=== PATIENT | female | born 1960 | race Caucasian/White ===

== ENCOUNTER 2018-09-08 13:28 | Inpatient (IN) | payer BC, OTHER ==
[2018-09-08] MEDS ORDERED: LIDOCAINE 1% 2 ML INJ ID PRN (13:44)
[2018-09-08] MEDS ORDERED: LR 1,000 ML IV ONE (13:44)
[2018-09-08] MEDS ORDERED: ACETAMINOPHEN 500 MG TAB PO ONE (13:48)
[2018-09-08] MEDS ORDERED: ceFAZolin 2 GM/DEXTROSE 100 ML IV ONE (13:48)
[2018-09-08] MEDS ORDERED: GABAPENTIN 300 MG CAP PO ONE (13:48)
[2018-09-08] MEDS ORDERED: BACITRACIN ZINC 0.5 OZ OINTTUBE TP ONE (13:53)
[2018-09-08] MEDS ORDERED: CHLORHEXIDINE GLUC HIBICLENS 118 ML BTL TP ONE (13:53)
[2018-09-08] MEDS ORDERED: THROMBIN (BOVINE) 20,000 UNIT VIAL TP ONE (13:53)
[2018-09-08] MEDS ORDERED: BACITRACIN 50,000 UNITS/10 ML SYR IRR ONE (13:54)
[2018-09-08] MEDS ORDERED: EPINEPHrine 1 MG/ML INJ ONE (13:54)
[2018-09-08] MEDS ORDERED: BUPIVACAINE 0.25% 30 ML SDV ONE (13:54)
--- NOTE | 2018-09-08 14:03 | PDHPUP ---
History & Physical Update H&P update statement: This history and physical update is based on an assessment of the patient which was completed after admission or registration (within 24 hours), but prior to the surgery/procedure. H&P update: H&P reviewed & patient examined, no change in patient's condition since H&P completed
[2018-09-08] MEDS ORDERED: MIDAZOLAM 2 MG/2 ML VIAL IVP ONE (14:54)
--- NOTE | 2018-09-08 14:54 | PDANEPAE ---
ANE History of Present Illness Neck pain, limited ROM, peripheral neuropathy in UE ANE Past Medical History - Cardiovascular History Hx Hypertension: No Hx Arrhythmias: No Hx Chest Pain: No Hx Coronary Artery / Peripheral Vascular Disease: No Hx CHF / Valvular Disease: No Hx Palpitations: No - Pulmonary History Hx COPD: No Hx Asthma/Reactive Airway Disease: Yes Hx Recent Upper Respiratory Infection: No Hx Oxygen in Use at Home: No Hx Sleep Apnea: No - Neurologic History Hx Cerebrovascular Accident: No Hx Seizures: No Hx Dementia: No Neurologic History Comment: MENINGIOMA, CRAINIOTOMY - Endocrine History Hx Diabetes: No - Renal History Hx Renal Disorders: No - Liver History Hx Hepatic Disorders: No - Neurological & Psychiatric Hx Neurological / Psychiatric History Comment: BIPOLAR - Cancer History Hx Cancer: Yes Cancer History Comment: MENINGIOMA - Congenital Disorder History Hx Congenital Disorders: No - GI History Hx Gastrointestinal Disorders: Yes Gastrointestinal History Comment: gerd - Chronic Pain History Chronic Pain: Yes (ON LOTS OF OPIODS) - Surgical History Prior Surgeries: CRAINIOTOMY 2006. MULTIPLE SPINE SURGERIES ANE Review of Systems Review of Systems: - Exercise capacity METS (RN): 4 METS ANE Patient History - Allergies Allergies/Adverse Reactions: No Known Allergies Allergy (Verified 09/07/18 14:38) - Home Medications Home medications: home medication list seen and reviewed Home Medications: Albuterol [Proventil Inhaler HFA (*)] 1 - 2 puffs IH Q4H PRN 09/07/18 [Last Taken 08/09/18] Ascorbic Acid [Vitamin C 500 mg (*)] 500 mg PO DAILY 09/07/18 [Last Taken ] Cyanocobalamin [Vitamin B12 1000MCG/ML (*)] 1,000 mcg IM Q30D 09/07/18 [Last Taken 09/04/18] Diazepam [Valium 5 MG (*)] 10 mg PO HS 09/07/18 [Last Taken 09/07/18] Ergocalciferol [Vitamin D2 (*)] 50,000 unit PO SA 09/07/18 [Last Taken 09/04/18] Estradiol [Estrace Vaginal (*)] 1 alma rosa VG Q3D 09/07/18 [Last Taken Unknown] Gabapentin [Neurontin 300 MG (*)] 900 mg PO BID 09/07/18 [Last Taken 09/08/18 10 :00] Herbals/Supplements -Info Only 1 ea PO DAILY 09/07/18 [Last Taken 09/04/18] Levothyroxine [Synthroid 50 mcg (*)] 50 mcg PO DAILY06 09/07/18 [Last Taken 10:00] Multivitamins [Multivitamin (*)] 1 each PO DAILY 09/07/18 [Last Taken 09/04/18] [place]-3 Fatty Acids [Fish Oil 1000 mg (*)] 1,000 mg PO DAILY 09/07/18 [Last Taken 09/04/18] Polyethylene Glycol 3350 [Miralax 17 gm (*)] 34 gm PO HS 09/07/18 [Last Taken Unknown] QUEtiapine FUMARATE [Seroquel 100 mg (*)] 100 mg PO HS 09/07/18 [Last Taken ] Vortioxetine Hydrobromide [Brintellix] 20 mg PO DAILY 09/07/18 [Last Taken 09/08 10:00] fentaNYL [Duragesic 75 MCG Patch (*)] 75 mcg TD Q48H 09/07/18 [Last Taken 16:00] lamoTRIgine [LamICTAL 100 MG (*)] 200 mg PO DAILY 09/07/18 [Last Taken 09/08/18 10:00] oxyCODONE IR [Oxycodone Ir (*)] 30 mg PO Q4HRS PRN 09/07/18 [Last Taken 10:00] oxyCODONE ORAL SOLUTION [Roxicodone Intensol] 20 mg PO Q4HRS PRN 09/07/18 [Last Taken 09/06/18] risperiDONE [Risperdal 1mg (*)] 1 mg PO BID 09/07/18 [Last Taken 09/08/18 10:00] traZODone [traZODONE 50MG (*)] 100 - 150 mg PO HS 09/07/18 [Last Taken 09/07/18] - NPO status NPO Status: no food or drink >8 hours NPO Since - Liquids (Date): 09/08/18 NPO Since - Liquids (Time): 10:00 NPO Since - Solids (Date): 09/07/18 NPO Since - Solids (Time): 22:00 - Anes Hx Anes Hx: no prior problems - Smoking Hx Smoking Status: Current some day smoker - Family Anes Hx Family Anes Hx: none ANE Labs/Vital Signs - Vital Signs Blood Pressure: 110/64 Heart Rate: 77 Respiratory Rate: 19 O2 Sat (%): 92 ANE Physical Exam - Airway Neck exam: decreased ROM Mallampati Score: Class 1 Mouth exam: normal dental/mouth exam - Pulmonary Pulmonary: no respiratory distress, no rales or rhonchi - Cardiovascular Cardiovascular: regular rate and rhythym, no murmur, rub, or gallop - ASA Status ASA Status: II ANE Anesthesia Plan Anesthesia Plan: general endotracheal anesthesia
[2018-09-08] MEDS ORDERED: HYDROmorphONE/DILAUDID 2 MG/ML INJ ONE ×2 (15:01→19:24)
[2018-09-08] MEDS ORDERED: KETAMINE 200 MG/20 ML VIAL ONE (15:02)
[2018-09-08] MEDS ORDERED: fentaNYL 100 MCG/2 ML INJ ONE ×4 (15:02→19:47)
[2018-09-08] MEDS ORDERED: PROPOFOL/EMULSION 500 MG/50 ML BOTTLE IV ONE (15:02)
[2018-09-08] MEDS ORDERED: REMIFENTANIL HCL 1 MG VIAL ONE (15:02)
[2018-09-08] MEDS ORDERED: PROPOFOL 200 MG/20 ML VIAL ONE (15:02)
--- NOTE | 2018-09-08 15:29 | POSTOPPROG ---
Post Op Note Date of Operation: 09/08/18 Surgeon: Max Abel Electroless Plater: Max Abel PAC Anesthesiologist: Pamela Anesthesia: GET(General Endotracheal) Pre-op Diagnosis: C6/7 HNP, spinal stenosis Post-op Diagnosis: Same Indication: Neck pain, leg discoordination Procedure: C6/7 ACDF, Posterior C6/7 Decompression/fusion Findings: Stenoisis Inf/Abcess present in the surg proc area at time of surgery?: No EBL: 100-500 Complications: None Drains: Yosvany Oneal (To bulb suction x 2) Specimen(s): none
[2018-09-08] MEDS ORDERED: SUGAMMADEX SODIUM 200 MG/2 ML VIAL IVP ONE (15:32)
[2018-09-08] MEDS ORDERED: DEXAMETHASONE 4 MG/ML VIAL ONE ×2 (15:53)
[2018-09-08] MEDS ORDERED: ONDANSETRON 4 MG/2 ML VIAL IVP PRN ×2 (17:33→18:36)
[2018-09-08] MEDS ORDERED: NALOXONE HCL 0.4 MG/ML INJ IVP PRN ×2 (17:33→18:36)
[2018-09-08] MEDS ORDERED: PROMETHAZINE HCL 25 MG/ML INJ IVP PRN ×2 (17:33→18:36)
[2018-09-08] MEDS ORDERED: ONDANSETRON 4 MG/2 ML VIAL ONE (18:07)
[2018-09-08] MEDS ORDERED: diphenhydrAMINE 25 MG CAP PO PRN (18:36)
[2018-09-08] MEDS ORDERED: LACTULOSE 20 GM/30 ML UDCUP PO PRN (18:36)
[2018-09-08] MEDS ORDERED: ONDANSETRON DISINTEGRATING 4 MG TAB PO PRN (18:36)
[2018-09-08] MEDS ORDERED: oxyCODONE IR 5 MG TAB PO PRN (18:36)
[2018-09-08] MEDS ORDERED: BISACODYL 10 MG SUPP PR PRN (18:36)
[2018-09-08] MEDS ORDERED: morphINE PCA 30 MG/30 ML PCA IV PRN (18:36)
[2018-09-08] MEDS ORDERED: HYDROmorphONE/DILAUDID 1 MG/ML INJ IVP PRN (18:36)
[2018-09-08] MEDS ORDERED: MAGNESIUM HYDROXIDE 30 ML UDCUP PO PRN (18:36)
--- NOTE | 2018-09-08 18:36 | SOAPPROG ---
SOAP Progress Note Assessment/Plan: POST OP CHECK: Assessment: Doing well s/p C6/7 ACDF and C5-7 posterior fusion with C6/7 decompression Plan: CPM in PACU. ROBBIN x 2 to bulb suction transfer to floor per protocol Hard collar at all times 09/08/18 18:34 Subjective: eyes closed, opens to voice stimulation. SHe is comfortable Objective: Vital Signs Temp Pulse Resp BP Pulse Ox 36.4 C 77 19 110/64 92 09/08/18 14:16 09/08/18 16:27 09/08/18 16:27 09/08/18 16:27 09/08/18 16:27 Vitals: HR: 91 BP: 129/79 O2: 100 % face mask Neuro: PERLLA MINOR, sens + LT moves both arms. legs, squeezes hands 5/5 patient assistant, bic,tric 5/5 bilat PF,DF flexes knees up follows commands. ICD10 Worksheet Patient Problems: Problems Problem Status Onset Cervical disc herniation Acute Cervical stenosis of spinal canal Acute Myelopathy Acute - ICD10 Problem Qualifiers (1) Cervical stenosis of spinal canal (2) Cervical disc herniation (3) Myelopathy
[2018-09-08] MEDS ORDERED: ALBUTEROL 60 PUFFS/8 GM MDI IH PRN (18:41)
--- NOTE | 2018-09-08 18:47 | POSTANESTH ---
Post Anesthetic Evaluation Cardiovascular Status: Similar to Pre-Op Cond Respiratory Status: Similar to Pre-op Cond. Level of Consciousness/Mental Status: Alert and Oriented Pain Control: Adequate, Prn Tx Ordered Nausea/Vomiting Control: Adequate, Prn Tx Ordered Complications Possibly Related to Anesthesia: None Noted (Moving all ext and vision good.)
--- NOTE | 2018-09-08 18:49 | GOP ---
DATE OF OPERATION: 09/08/2018 SURGEON: Taqueria Logan MD SENIOR COURT OFFICE ASSISTANT: Max Abel, LINNETTE. ANESTHESIA: General endotracheal. PREOPERATIVE DIAGNOSIS: C6-7 disk herniation and ligamentum flavum hypertrophy causing severe centra l canal stenosis and spinal cord compression. Cervical spondylitic myelopathy. POSTOPERATIVE DIAGNOSIS: C6-7 disk herniation and ligamentum flavum hypertrophy causing severe centr al canal stenosis and spinal cord compression. Cervical spondylitic myelopathy. PROCEDURE PERFORMED: Complete C6-7 anterior cervical diskectomy and fusion with an 11 mm structural PEEK interbody spacer, local autograft and demineralized bone matrix. Placement of a 23 mm LnK Castl eLoc-P anterior cervical plate C6-7 with self-drilling screws. Use of intraoperative microscopy and fluoroscopy. Exploration of spinal fusion, C5-6. FINDINGS: ESTIMATED BLOOD LOSS: 25 cc. INDICATIONS: The patient is a 57-year-old woman with myelopathic symptoms, secondary to a C6-7 disk herniation in combination with ligamentum flavum hypertrophy causing severe cervical stenosis and spi nal cord compression. She presents now for anterior and posterior decompression and stabilization. DESCRIPTION OF PROCEDURE: After informed consent was obtained, the patient was taken to the operatin g room and placed in supine position. Baseline neuro monitoring signals were obtained and they were not great, so we did not manipulate her neck at all out of the neutral position and did not put on th e halter retractor system. After fluoroscopic localization of the correct level, the subcutaneous an d intramuscular tissues were infiltrated with local anesthesia. A horizontal incision was then creat ed in a skin crease at approximately the level of C6-7 interspace. This was carried through the plat ysmal layer using the monopolar electrocautery. An avascular plane between the sternocleidomastoid a nd carotid sheath laterally and the strap muscles, trachea, and esophagus medially down to the prever tebral fascia, which was carefully incised with Metzenbaum scissors. The C6-7 interspaces were ident ified and re-verified using intraoperative fluoroscopy. The distraction pins were carefully inserted and under slight amount of distraction, a complete diskectomy was performed with removal of posterio r longitudinal ligament. Bilateral foraminotomies were performed. The endplates were carefully prep ared and after a thorough decompression of the central canal and bilateral neural foramen, an 11 mm s tructural PEEK interbody spacer packed with local autograft from the osteophytectomy and demineralize d bone matrix was placed in the interspace under fluoroscopic image guidance. The distraction was re moved and an appropriately sized 23 mm LnK CastleLoc-P anterior cervical plate was placed at the C6-7 level after exploring the C5-6 level and noted it to be solid. The C6-7 plate was [address] w ith the locking mechanisms which were engaged after biplanar fluoroscopic image guidance verified goo d position of the plate screws and interbody spacer. A drain was then placed. The subcutaneous and intramuscular tissues were re-infiltrated with local anesthesia and the wound was closed in a layered fashion using interrupted Vicryl sutures, followed by Steri-Strips on the skin. COMPLICATIONS: None. DISPOSITION: The patient remained intubated and was repositioned prone for the posterior portion of the operation. /[id number]/MODL
[2018-09-08] MEDS: fentaNYL 100 MCG/2 ML INJ IVP PRN ×3 (19:15→19:48)
[2018-09-08] MEDS: HYDROmorphONE/DILAUDID 2 MG/ML INJ IVP PRN ×6 (19:26→21:01)
[2018-09-08] MEDS ORDERED: DIAZEPAM 5 MG/ML 1 ML SYR ONE (20:09)
[2018-09-08] MEDS: DIAZEPAM 5 MG/ML 1 ML SYR IVP PRN ×2 (20:10→20:22)
--- NOTE | 2018-09-08 21:21 | GOP ---
DATE OF OPERATION: 09/08/2018 SURGEON: Taqueria Logan MD NEUROSURGEON: Taqueria Logan MD FUEL OIL TRUCK DRIVER: LINNETTE Bazzi. ANESTHESIA: General endotracheal. PREOPERATIVE DIAGNOSIS: C6-7 disk herniation and ligamentum flavum hypertrophy causing severe centra l canal stenosis and spinal cord compression. Cervical spondylitic myelopathy. POSTOPERATIVE DIAGNOSIS: C6-7 disk herniation and ligamentum flavum hypertrophy causing severe centr al canal stenosis and spinal cord compression. Cervical spondylitic myelopathy. PROCEDURE PERFORMED: C6-7 laminectomy for decompression of spinal cord with C5 through C7 posterior segmental (lateral mass screw) fixation and posterolateral fusion with local autograft. Use of intrao perative microscopy and fluoroscopy. FINDINGS: ESTIMATED BLOOD LOSS: 25 cc. INDICATIONS: The patient is a 57-year-old woman with myelopathic symptoms, secondary to a C6-7 disk herniation in combination with ligamentum flavum hypertrophy causing severe cervical stenosis and spi nal cord compression. She presents now for anterior and posterior decompression and stabilization. DESCRIPTION OF PROCEDURE: After the anterior portion of the procedure was completed, the patient was repositioned prone on the Yosvany table with the radiolucent head wrestling coach just in case we needed imag e navigation. After prepping and draping the neck, intraoperative fluoroscopy was utilized to localiz e the correct level. A midline linear incision was then created over the C5-C7 spinous processes. Thi s was carried down the fascial layer, which was then incised using monopolar electrocautery and roseann ed in the subperiosteal plane along the spinous processes and out lamina bilaterally. Intraoperative fluoroscopy was utilized to re-verify the correct levels. Following this, the dissection was carried out over the facet joints. A C6-7 laminectomy was then performed for decompression of the spinal hillary l. Meticulous hemostasis was achieved. Following this, lateral mass screw fixation was placed at C5, C6 and C7. Each individual screw was tested neurophysiologically with monopolar electrostimulation an d interpretation of the potentials by the surgeon. Biplanar fluoroscopy was also utilized to verify g ood position of the screws. Rods were then placed and secured under lordotic position. The remaining lamina and facet joints were extensively decorticated from C5 through C7. Local autograft was placed out laterally for posterolateral fusion from C5-C7. A drain was then placed. The subcutaneous and int ramuscular tissues were re-infiltrated with local anesthesia. The wound was closed in a layered fashi on using interrupted Vicryl sutures, followed by Steri-Strips on the skin. COMPLICATIONS: None. DISPOSITION: The patient is currently in the process of being repositioned for extubation. /[id number]/MODL
[2018-09-08] MEDS ORDERED: oxyCODONE ORAL SOLUTION 10 MG/0.5 ML UDSYR PO PRN (21:45)
[2018-09-08] MEDS ORDERED: fentaNYL 75 MCG PATCH TD SCH (22:00)
[2018-09-08] MEDS: ceFAZolin 2 GM/DEXTROSE 100 ML IV SCH (22:10)
[2018-09-08] MEDS: GABAPENTIN 300 MG CAP PO SCH (22:10)
[2018-09-08] MEDS: SENNOSIDES/DOCUSATE SODIUM TAB PO SCH (22:11)
[2018-09-08] MEDS: ACETAMINOPHEN 500 MG TAB PO SCH (22:11)
[2018-09-08] MEDS: POLYETHYLENE GLYCOL 3350 17 GM PKT PO SCH (22:12)
[2018-09-08] MEDS: FAMOTIDINE 20 MG TAB PO SCH (22:12)
[2018-09-08] MEDS: QUEtiapine FUMARATE 100 MG TAB PO SCH (22:12)
[2018-09-08] MEDS: DIAZEPAM 5 MG TAB PO SCH (22:12)
[2018-09-08] MEDS: risperiDONE 1 MG TAB PO SCH (23:02)
[2018-09-09 05:24] LABS: PLATELET COUNT 359 10^3/uL (150-400)
[2018-09-09] MEDS: ceFAZolin 2 GM/DEXTROSE 100 ML IV SCH (06:04)
[2018-09-09] MEDS: LEVOTHYROXINE 50 MCG TAB PO SCH (06:04)
[2018-09-09] MEDS: GABAPENTIN 300 MG CAP PO SCH ×3 (06:04→21:21)
[2018-09-09] MEDS: ACETAMINOPHEN 500 MG TAB PO SCH ×3 (06:05→21:21)
--- NOTE | 2018-09-09 07:33 | SOAPPROG ---
SOAP Progress Note Assessment/Plan: Assessment: Doing well s/p C6/7 ACDF and C5-7 posterior fusion with C6/7 decompression POD #1 Plan: PT/OT/ST today Cervical Xrays today ROBBIN x 2 to bulb suction Hard collar at all times Pain control Subjective: resting comfortably, pain well controlled, not requiring WORD PROCESSING SPECIALIST. Notes improved sensation in her feet, but toes still numb Objective: Vital Signs Temp Pulse Resp BP Pulse Ox 36.2 C 92 16 115/61 97 09/09/18 04:00 09/09/18 04:00 09/09/18 04:00 09/09/18 04:00 09/09/18 04:00 Laboratory Results 09/09/18 04:41 09/09/18 04:41 09/08/18 09/09/18 09/10/18 05:59 05:59 05:59 Intake Total 1900 Output Total 1175 Balance 725 Neuro: MINOR to command Sens +Lt Ant Dressing CDI Ant ROBBIN: 35 ml Post ROBBIN: 115ml ICD10 Worksheet Patient Problems: Problems Problem Status Onset Cervical disc herniation Acute Cervical stenosis of spinal canal Acute Myelopathy Acute - ICD10 Problem Qualifiers (1) Cervical stenosis of spinal canal (2) Cervical disc herniation (3) Myelopathy
[2018-09-09] MEDS: SENNOSIDES/DOCUSATE SODIUM TAB PO SCH ×2 (09:22→21:21)
[2018-09-09] MEDS: FAMOTIDINE 20 MG TAB PO SCH ×2 (09:22→21:21)
[2018-09-09] MEDS: lamoTRIgine 100 MG TAB PO SCH (09:22)
[2018-09-09] MEDS: POLYETHYLENE GLYCOL 3350 17 GM PKT PO SCH ×3 (09:22→21:22)
[2018-09-09] MEDS: ENOXAPARIN 40 MG/0.4 ML SYR SC SCH (09:31)
[2018-09-09] MEDS: Vortioxetine Hydrobromide [Trintellix] 20 MG PO SCH (10:48)
[2018-09-09] MEDS: METHOCARBAMOL 750 MG TAB PO PRN ×2 (10:59→16:56)
[2018-09-09] MEDS: risperiDONE 1 MG TAB PO SCH ×2 (11:30→21:22)
--- NOTE | 2018-09-09 11:38 | PDMN ---
Medical Necessity Medical necessity: [facility] [place] S330 cervical fusion, posterior - 2 days -- OP: posterolateral fusion C5-/7, C6/7 lami., exploration of C5/6 spinal fusion AUTH# [id number] APPROVED FOR 1 DAY,
--- NOTE | 2018-09-09 15:21 | ASMTCMCOM ---
CM Note CM Note Notes: Pt had planned surgery, resides with spouse. OT/PT/VETERINARY PRACTITIONER rec home. Pt likely independent d/c, CM to follow. Date Signed: 09/09/2018 03:17 PM Electronically Signed By:CHER Tobar
[2018-09-09] MEDS: QUEtiapine FUMARATE 100 MG TAB PO SCH (21:22)
[2018-09-09] MEDS: DIAZEPAM 5 MG TAB PO SCH (21:22)
[2018-09-10] MEDS: METHOCARBAMOL 750 MG TAB PO PRN ×2 (04:11→15:42)
[2018-09-10] MEDS: GABAPENTIN 300 MG CAP PO SCH ×2 (05:37→15:41)
[2018-09-10] MEDS: ACETAMINOPHEN 500 MG TAB PO SCH ×2 (05:37→15:41)
[2018-09-10] MEDS: LEVOTHYROXINE 50 MCG TAB PO SCH (05:37)
--- NOTE | 2018-09-10 07:23 | SOAPPROG ---
SOAP Progress Note Assessment/Plan: Assessment: 57 yo F POD #2 plate removal C6/7 ACDF, C5-7 posterior fusion with C6/7 decompression Plan: neuro: stable and doing well overall PT/OT hard collar at all times post op x-rays look good ROBBIN x 2 scd/chet for dvt prophylaxis, lovenox starts POD #3 please change dressings please call with neuro changes discussed with Dr Cervantes 09/10/18 07:20 09/10/18 07:23 Subjective: continued neck pain, hands feel better, no weakness. Objective: Vital Signs Temp Pulse Resp BP Pulse Ox 36.5 C 81 16 125/72 H 96 09/10/18 07:14 09/10/18 07:14 09/10/18 07:14 09/10/18 07:14 09/10/18 07:14 Laboratory Results 09/09/18 04:41 09/09/18 04:41 09/09/18 09/10/18 09/11/18 05:59 05:59 05:59 Intake Total 1900 2750 Output Total 1175 8925 Balance 725 -2004 AAOx4, +FC PERRL, EOMI, no facial droop 5/5 + light touch C/D/I x 2 ICD10 Worksheet Patient Problems: Problems Problem Status Onset Cervical disc herniation Acute Cervical stenosis of spinal canal Acute Myelopathy Acute
[2018-09-10] MEDS: ENOXAPARIN 40 MG/0.4 ML SYR SC SCH (08:39)
[2018-09-10] MEDS: FAMOTIDINE 20 MG TAB PO SCH (08:40)
[2018-09-10] MEDS: risperiDONE 1 MG TAB PO SCH (08:40)
[2018-09-10] MEDS: lamoTRIgine 100 MG TAB PO SCH (08:40)
[2018-09-10] MEDS: SENNOSIDES/DOCUSATE SODIUM TAB PO SCH (08:41)
[2018-09-10] MEDS: POLYETHYLENE GLYCOL 3350 17 GM PKT PO SCH (08:41)
[2018-09-10] MEDS: Vortioxetine Hydrobromide [Trintellix] 20 MG PO SCH (08:45)
[2018-09-10 11:10] VITALS: BP 126/71
--- NOTE | 2018-09-10 16:04 | ASMTLACE ---
DEBBIEE Length of stay for Answers: 3 days current admission Acuity / Level of Answers: Yes Care: Did the patient have an inpatient admission? Comorbidities - select Answers: Opioid dependence all that apply / Chronic pain Other Notes: GERD # of Emergency department Answers: 0 visits in the last 6 months Social determinants Answers: Mental health diagnosis (anxiety, depression, pers onality disorders, etc.) Score: 14 Date Signed: 09/10/2018 04:04 PM Electronically Signed By:CHER Tobar
--- NOTE | 2018-09-10 16:05 | ASMTCMCOM ---
CM Note CM Note Notes: Therapies continue to rec home. Pt medically stable for d/c, no CM d/c needs identified. Date Signed: 09/10/2018 04:05 PM Electronically Signed By:CHER Tobar
[2018-09-11] MEDS ORDERED: ESTRADIOL 42.5 GM CRTUBE VG SCH (08:00)
== END 2018-09-10 16:17 | disposition home or self-care (01) | DRG 455 ==
LOC: F3N 13:28
PROVIDERS: ADMIT Neurological Surgery; ATTEND Neurological Surgery
DX: M50.223 Other cervical disc displacement at C6-C7 level (principal); M46.82 Other specified inflammatory spondylopathies, cervical region; M50.023 Cervical disc disorder at C6-C7 level with myelopathy; J45.909 Unspecified asthma, uncomplicated; F31.9 Bipolar disorder, unspecified; K21.9 Gastro-esophageal reflux disease without esophagitis; Z72.0 Tobacco use
CPT/HCPCS: 92526-GN; 92610-GN; 97116-GP; 97161-GP; 97166-GO; 97530-GP; 97535-GO; C1713; J0171; J0690; J1100; J1170; J1650; J2250; J2405; J2704; J3010; J3360